=== PATIENT | female | born 1965 | race Caucasian/White ===

== ENCOUNTER 2017-02-13 11:52 | Emergency (ER) | payer MEDICAID, OTHER ==
[~2017-02-13] VITALS: Ht 167.6 cm; Wt 98.5 kg
[~2017-02-13 11:52] MED LIST: AMO500 PO; CARI350T PO; CIPR500T4 PO; CYCL-319 PO; IBUP-1542 PO; LISI10TA2 PO; NAPR-260 PO; NAPR-688 PO; NITR-58 PO; TRAZ50TA18 PO
[2017-02-13 11:57] VITALS: Ht 167.6 cm; Wt 98.5 kg
[2017-02-13] MEDS ORDERED: KETOROLAC 30 MG INJ IM STA (12:53)
[2017-02-13] MEDS ORDERED: predniSONE 20 MG TAB PO ONE (13:00)
[2017-02-13] MEDS ORDERED: TRAM50TA2 PO (13:57)
[2017-02-13] MEDS ORDERED: PRED20TA PO (13:57)
[2017-02-13] MEDS ORDERED: NAPR-260 PO (13:58)
[2017-02-13] MEDS ORDERED: CYCL-319 PO (13:58)
--- NOTE | 2017-02-13 14:04 | ERD ---
ER Documentation Chief Complaint Date/Time DATE: 02/13/17 TIME: 13:59 Chief Complaint back pain x 1 month HPI This 51-year-old female who presents to the emergency department today complaining of back pain. Patient states she has had problems with her back in the past however it came and went. States she has done physical therapy in the past. States has been worse the past month and then worse again the last couple of days. States that she has had x-rays on her back that show scoliosis. States she is not taking any medication for the pain because "I did not have any". Denies any fevers or chills, dysuria, loss of bowel or bladder control. ROS All systems reviewed and are negative except as per history of present illness. Medications Home Meds Active Scripts Naproxen* (Naprosyn*) 500 Mg Tablet, 500 MG PO BID Y for PAIN AND/OR INFLAMMATION, #30 TAB Prov:CRIS HOYOSC 02/13/17 Cyclobenzaprine Hcl* (Cyclobenzaprine Hcl*) 10 Mg Tablet, 10 MG PO QHS, #7 TAB Prov:CRIS HOYOSC 02/13/17 Prednisone* (Prednisone*) 20 Mg Tab, 40 MG PO DAILY for 4 Days, TAB Prov:CRIS HOYOSC 02/13/17 Tramadol HCl (Tramadol HCl) 50 Mg Tablet, 50 MG PO Q4 Y for PAIN, #20 TAB Prov:CRIS HOYOSC 02/13/17 Naproxen* (Naprosyn*) 500 Mg Tablet, 500 MG PO BID Y for PAIN AND/OR INFLAMMATION, #30 TAB Prov:PRISCILA GUY NP 01/17/16 Nitrofurantoin Monohyd Macrocr* (Macrobid*) 100 Mg Capsr, 100 MG PO BID for 7 Days, CAP Prov:PRISCILA GUY NP 01/17/16 Carisoprodol* (Soma*) 350 Mg Tablet, 350 MG PO TID Y for MUSCLE SPASMS, #15 TAB Prov:JATINDER MALDONADOC 09/08/15 Ibuprofen* (Motrin*) 600 Mg Tab, 600 MG PO Q6H Y for PAIN AND OR ELEVATED TEMP, #30 TAB Prov:JATINDER MALDONADO PA-C 09/08/15 Ciprofloxacin Hcl* (Ciprofloxacin Hcl*) 500 Mg Tablet, 500 MG PO BID for 7 Days , TAB Prov:JATINDER MALDONADO PA-C 09/08/15 Naproxen* (Naproxen*) 500 Mg Tablet, 500 MG PO BID, #20 TAB Prov:CANELO CRUZ DO 08/26/15 Amoxicillin* (Amoxicillin*) 500 Mg Cap, 500 MG PO Q8, #30 CAP Prov:CANELO CRUZ DO 08/26/15 Ibuprofen* (Motrin*) 600 Mg Tab, 600 MG PO Q8, #20 Prov:ALYSATimYISSELNATY 05/16/15 Cyclobenzaprine Hcl* (Cyclobenzaprine Hcl*) 10 Mg Tablet, 10 MG PO TID, #15 TAB Prov:NIMA SMITHBIR 05/16/15 Reported Medications Trazodone Hcl* (Trazodone Hcl*) 50 Mg Tablet, 50 MG PO HS Y for SLEEP, TAB 08/06/14 Lisinopril* (Lisinopril*) 10 Mg Tablet, 10 MG PO DAILY, TAB 08/06/14 Allergies Allergies: Coded Allergies: morphine (Verified Allergy, Severe, CARDIAC ARREST, 08/26/15) PMhx/Soc History of Surgery: Yes (GALL BLADDER IN ', CERVIX IN ') Anesthesia Reaction: No Hx Neurological Disorder: No Hx Respiratory Disorders: No Hx Cardiac Disorders: Yes (HTN) Hx Psychiatric Problems: Yes (DEPRESSSION ANXIETY) Hx Miscellaneous Medical Probl: Yes (high cholesterol) Hx Alcohol Use: Yes (SOCIALLY) Hx Substance Use: Yes Hx Tobacco Use: Yes Smoking Status: Current every day smoker Physical Exam Vitals Vital Signs Date Time Temp Pulse Resp B/P Pulse Ox O2 Delivery O2 Flow Rate FiO2 02/13/17 11:57 97.6 83 18 149/67 100 Physical Exam Const: NAD Head: Atraumatic Eyes: Normal Conjunctiva ENT: Normal External Ears, Nose and Mouth. Neck: Full range of motion..~ No meningismus. Resp: Clear to auscultation bilaterally Cardio: Regular rate and rhythm, no murmurs Skin: No petechiae or rashes Back: Lumbar spine midline tenderness and bilateral paraspinal tenderness. Bilateral positive straight leg raise. Distal neurovascularly intact. Pulses 2 +. Ext: No cyanosis, or edema Neur: Awake and alert Psych: Normal Mood and Affect Results 24 hrs Current Medications Medications (Trade) Dose Ordered Sig/Marsha Route PRN Reason Start Time Stop Time Status Last Admin Dose Admin Ketorolac Tromethamine (Toradol) 30 mg ONCE STAT IM 02/13/17 12:53 02/13/17 12:56 DC 02/13/17 13:10 Prednisone (Prednisone) 60 mg ONCE ONCE PO 02/13/17 13:00 02/13/17 13:01 DC 02/13/17 13:10 Procedures/MDM This a 51-year-old female presents to the emergency department today complaining of low back pain. Patient has had a history of sciatic pain in the past and has done physical therapy. Patient had been doing well for a period of time however it has been worse in the past month and worse in the past couple of days. I do not feel the patient requires new images at this time. She is afebrile and otherwise well-appearing. There has been no new trauma to she has no loss of bowel or bladder control. Low suspicion for cauda equina or abscess. Low suspicion for acute fracture or dislocation. She had been seen here multiple times in the past for low back pain and this appears to be acute on chronic. Patient had not been seen here since August 2015 for the specific complaint. She does not appear to be exhibiting drug- seeking behaviors. Patient had indicated that initially at 1. she was going to have some steroid injections in her back however this was never followed up on. Patient symptoms at this time is consistent with sciatica. Patient was given a Toradol injection and prednisone here in the emergency department. She will be given a short course of tramadol, Naprosyn, Flexeril and prednisone for home At this time the patient is stable for discharge and outpatient management. Patient should follow up with their PCP in the next 1-2 days. They may return to the emergency department sooner for any persistent or worsening of symptoms. Patient understood and agreed with the plan. Departure Diagnosis: Primary Impression: Back pain Back pain location: low back pain Chronicity: unspecified Back pain laterality: bilateral Sciatica presence: with sciatica Sciatica laterality: bilateral sciatica Qualified Code: M54.42 - Bilateral low back pain with bilateral sciatica, unspecified chronicity Condition: Fair Patient Instructions: Back Pain (Acute Or Chronic), Back Pain W/ Sciatica Referrals: your PCP [facility] [place] Hours: Sun-Sun 9:00 AM - 5:00 PM Additional Instructions: Call your primary care doctor TOMORROW for an appointment during the next 1-2 days.See the doctor sooner or return here if your condition worsens before your appointment time. Make an appointment with your primary care doctor for referral to physical therapy or credit administration specialist Take tramadol for severe pain otherwise take Naprosyn or Tylenol or Motrin Flexeril for muscle spasms only as needed. Take only at night and do not drive while taking this medication Take prednisone as prescribed CRIS HOYOS PA-C February 13, 2017 14:04
== END 2017-02-13 14:09 | disposition home or self-care (01) ==
LOC: FTE 11:52
DX: M54.42 Lumbago with sciatica, left side (principal); M54.41 Lumbago with sciatica, right side; F17.210 Nicotine dependence, cigarettes, uncomplicated; I10 Essential (primary) hypertension
CPT/HCPCS: 96372; J1885; J7512; Z7502

== ENCOUNTER 2017-02-23 11:36 | Emergency (ER) | payer MEDICAID, OTHER ==
[~2017-02-23] VITALS: Wt 99.0 kg
[~2017-02-23 11:36] MED LIST changes: +PRED20TA PO; +TRAM50TA2 PO
[2017-02-23] MEDS ORDERED: METHYLPREDNISOLONE 125 MG INJ IM STA (12:03)
[2017-02-23] MEDS ORDERED: IPRATROPIUM (NEB) 0.5 MG/2.5 ML AMP NEB STA (12:03)
[2017-02-23] MEDS ORDERED: ALBUTEROL 0.5% (NEB) 2.5 MG/0.5 ML AMP INH STA ×2 (12:03→13:37)
[2017-02-23] MEDS ORDERED: KETOROLAC 30 MG INJ IM STA (13:03)
--- NOTE | 2017-02-23 14:01 | RADRPT ---
PROCEDURE: XR Chest. CLINICAL INDICATION: Asthma exacerbation TECHNIQUE: Chest AP portable. COMPARISON: No comparison available. FINDINGS: The mediastinal structures are unremarkable. There is mild cardiomegaly. The pulmonary vascularity is normal. The lung corona are unremarkable. No consolidation is identified. The pleural spaces are unremarkable. The axial skeleton is unremarkable. IMPRESSION: Mild cardiomegaly No active disease RPTAT: HGDB .Jeff Shaw MD, MD Date Time Electronically viewed and signed by .Jeff Shaw MD, on 02/23/2017 14:01 .B/
[2017-02-23] MEDS ORDERED: PRED20TA PO (14:13)
[2017-02-23] MEDS ORDERED: AZIT250T94 PO (14:13)
[2017-02-23] MEDS ORDERED: ALBU8.5H3 INH (14:13)
--- NOTE | 2017-02-23 14:13 | ERD ---
ER Documentation Chief Complaint Date/Time DATE: 02/23/17 Chief Complaint Cough HPI The patient is a 51-year-old female who presents to the Emergency Department with complaint of mildly productive cough for the past month. The patient notes a history of tobacco use, though has quit. Over the past month she has been experiencing a persistent cough that alternates between being mildly productive of white-colored sputum and being dry. The cough is extremely bothersome, particularly at night when trying to sleep. It is associated with body aches, nasal congestion and mild rhinorrhea. Otherwise, no sore throat, ear pain, neck pain, neck stiffness or new rashes. No fevers, sweats, chills, nausea or vomiting. No chest pain, palpitations, shortness of breath. No lower extremity swelling, calf swelling/tenderness, dizziness, headache. No recent travel, OCP use, recent surgeries, history of cancer, prolonged periods of immobilization, hemoptysis, night sweats, or history of DVT/PE. No recent antibiotic use. No sick contacts. ROS All systems reviewed and are negative except as per history of present illness. Medications Home Meds Active Scripts Ibuprofen* (Motrin*) 600 Mg Tab, 600 MG PO Q6, #30 TAB Prov:JASPER RIZZO PA-C 02/23/17 Guaifenesin-Codeine Phosphate* (Guaifenesin* AC Cough Syrup) 473 Ml Liquid, 5 ML PO QHS Y for COUGH, #120 ML Prov:JASPER RIZZO PA-C 02/23/17 Azithromycin* (Zithromax*) 250 Mg Tablet, 250 MG PO .ZPACK DIRECTED, #6 TAB TAKE 500 MG (2 TABS) THE FIRST DAY THEN 250 MG (1 TAB) DAYS 2-5 Prov:JASPER RIZZO PA-C 02/23/17 Prednisone* (Prednisone*) 20 Mg Tab, 40 MG PO DAILY for 4 Days, TAB Prov:JASPER RIZZO PA-C 02/23/17 Albuterol Sulfate* (Proair HFA*) 8.5 Gm Hfa.aer.ad, 2 PUFF INH Q4, #1 INHALER Prov:JASPER RIZZO PA-C 02/23/17 Naproxen* (Naprosyn*) 500 Mg Tablet, 500 MG PO BID Y for PAIN AND/OR INFLAMMATION, #30 TAB Prov:CRIS HOYOS-C 02/13/17 Cyclobenzaprine Hcl* (Cyclobenzaprine Hcl*) 10 Mg Tablet, 10 MG PO QHS, #7 TAB Prov:CRIS HOYOS-C 02/13/17 Prednisone* (Prednisone*) 20 Mg Tab, 40 MG PO DAILY for 4 Days, TAB Prov:CRIS HOYOS-C 02/13/17 Tramadol HCl (Tramadol HCl) 50 Mg Tablet, 50 MG PO Q4 Y for PAIN, #20 TAB Prov:CRIS HOYOS-C 02/13/17 Naproxen* (Naprosyn*) 500 Mg Tablet, 500 MG PO BID Y for PAIN AND/OR INFLAMMATION, #30 TAB Prov:PRISCILA GUY BUSINESS ANALYTICS ANALYST 01/17/16 Nitrofurantoin Monohyd Macrocr* (Macrobid*) 100 Mg Capsr, 100 MG PO BID for 7 Days, CAP Prov:PRISCILA GUY BUSINESS ANALYTICS ANALYST 01/17/16 Carisoprodol* (Soma*) 350 Mg Tablet, 350 MG PO TID Y for MUSCLE SPASMS, #15 TAB Prov:JATINDER MALDONADO-C 09/08/15 Ibuprofen* (Motrin*) 600 Mg Tab, 600 MG PO Q6H Y for PAIN AND OR ELEVATED TEMP, #30 TAB Prov:JATINDER MALDONADO-C 09/08/15 Ciprofloxacin Hcl* (Ciprofloxacin Hcl*) 500 Mg Tablet, 500 MG PO BID for 7 Days , TAB Prov:JATINDER MALDONADO-C 09/08/15 Naproxen* (Naproxen*) 500 Mg Tablet, 500 MG PO BID, #20 TAB Prov:CANELO CRUZ DO 08/26/15 Amoxicillin* (Amoxicillin*) 500 Mg Cap, 500 MG PO Q8, #30 CAP Prov:CANELO CRUZ DO 08/26/15 Ibuprofen* (Motrin*) 600 Mg Tab, 600 MG PO Q8, #20 Prov:NATY SMITH 05/16/15 Cyclobenzaprine Hcl* (Cyclobenzaprine Hcl*) 10 Mg Tablet, 10 MG PO TID, #15 TAB Prov:NATY SMITH 05/16/15 Reported Medications Trazodone Hcl* (Trazodone Hcl*) 50 Mg Tablet, 50 MG PO HS Y for SLEEP, TAB 08/06/14 Lisinopril* (Lisinopril*) 10 Mg Tablet, 10 MG PO DAILY, TAB 08/06/14 Allergies Allergies: Coded Allergies: morphine (Verified Allergy, Severe, CARDIAC ARREST, 08/26/15) PMhx/Soc History of Surgery: Yes (GALL BLADDER IN , CERVIX IN ) Anesthesia Reaction: No Hx Neurological Disorder: No Hx Respiratory Disorders: No Hx Cardiac Disorders: Yes (HTN) Hx Psychiatric Problems: Yes (DEPRESSSION ANXIETY) Hx Miscellaneous Medical Probl: Yes (high cholesterol) Hx Alcohol Use: Yes (SOCIALLY) Hx Substance Use: Yes Hx Tobacco Use: Yes Smoking Status: Current every day smoker Physical Exam Vitals Vital Signs Date Time Temp Pulse Resp B/P Pulse Ox O2 Delivery O2 Flow Rate FiO2 02/23/17 15:20 98.4 82 18 149/67 99 Room Air 02/23/17 14:03 79 18 97 21 02/23/17 12:17 77 18 95 21 02/23/17 11:40 98.2 84 18 156/73 100 Physical Exam GENERAL: Well-developed, well-nourished, in no acute respiratory distress. HEENT: Head is normocephalic, atraumatic. No scleral pallor or icterus. Pupils equal, round and reactive to light. Extraocular movements intact. Conjunctiva pink. Nares are patent bilaterally. Bilaterally tympanic membranes are clear with no evidence of erythema, effusion or dulling of the light reflex. Moist mucous membranes. No pharyngeal erythema or exudates. Uvula is midline. NECK: Supple. No masses, no tenderness, no lymphadenopathy. Trachea midline. No nuchal rigidity. Full range of motion. RESPIRATORY: Prolonged expiratory phase with scattered expiratory wheezes bilaterally. Normal expiratory effort. No rales or rhonchi. No accessory muscle use. Speaking in full sentences. CARDIOVASCULAR: Regular rate and rhythm. S1 and S2 normal. No murmurs, rubs, or gallops. GASTROINTESTINAL: Abdomen is soft, nontender, and nondistended. EXTREMITIES: No clubbing, cyanosis, or edema. Normal skin perfusion. Full range of motion of both the upper and lower extremities bilaterally. Muscle tone is normal. No focal swelling or erythema. No calf swelling or calf tenderness. Distal pulses are palpable, 2+ bilaterally. Capillary refill is less than 2 seconds. NEUROLOGIC: The patient is alert, awake, and oriented x 3. No focal neurologic deficits. INTEGUMENT: Skin is clean, dry and intact. PSYCHIATRIC: Appropriate; Cooperative. Results 24 hrs Current Medications Medications (Trade) Dose Ordered Sig/Marsha Route PRN Reason Start Time Stop Time Status Last Admin Dose Admin Ipratropium [place] (Atrovent 0.02% (Neb)) 0.5 mg ONCE STAT NEB 02/23/17 12:03 02/23/17 12:05 DC 02/23/17 12:13 Albuterol (Proventil 0.5% (Neb)) 5 mg ONCE STAT INH 02/23/17 12:03 02/23/17 12:05 DC 02/23/17 12:13 Methylprednisolone Sodium Succinate (Solu-Medrol) 125 mg ONCE STAT IM 02/23/17 12:03 02/23/17 12:05 DC 02/23/17 12:09 Ketorolac Tromethamine (Toradol) 30 mg ONCE STAT IM 02/23/17 13:03 02/23/17 13:04 DC 02/23/17 13:28 Albuterol (Proventil 0.5% (Neb)) 5 mg ONCE STAT INH 02/23/17 13:37 02/23/17 13:38 DC 02/23/17 14:00 Procedures/MDM DIAGNOSTIC TESTS AND INTERPRETATION PROCEDURE: XR Chest. CLINICAL INDICATION: Asthma exacerbation TECHNIQUE: Chest AP portable. COMPARISON: No comparison available. FINDINGS: The mediastinal structures are unremarkable. There is mild cardiomegaly. The pulmonary vascularity is normal. The lung corona are unremarkable. No consolidation is identified. The pleural spaces are unremarkable. The axial skeleton is unremarkable. IMPRESSION: Mild cardiomegaly No active disease .Jeff Shaw MD, MD Date Time Electronically viewed and signed by .Jeff Shaw MD, on 02/23/2017 14:01 MEDICAL DECISION MAKING: This is a 51-year-old female presenting to the emergency department complaining of generalized body aches, nasal congestion and cough. On physical examination the patient had a prolonged expiratory phase , with scattered wheezes bilaterally. Otherwise, no rales or rhonchi were noted. She was afebrile, with no tachycardia, no tachypnea, no signs of respiratory distress. She had a normal O2 saturation on room air. She had no retractions, no increased work of breathing, no nasal flaring, no accessory muscle use. She exhibited no altered mental status, neurologic deficits or meningeal signs. Differential diagnosis includes, but is not limited to, pneumonia, pulmonary edema, sinusitis, foreign body, pertussis, upper respiratory infection, asthma, allergic rhinitis, GERD, bronchitis, allergic reaction, influenza, pharyngitis. No consolidation/infiltrates were noted on the diagnostic chest x-ray performed. After rest and administration of Toradol (for body aches), Solu-Medrol and breathing treatments (Albuterol/Atrovent) the patient reports no new complaints and reports feeling significantly better, with no shortness of breath or respiratory distress. Her wheezing resolved. \ Upon my review and interpretation of the patient's presentation and ER course, I believe the patient's symptoms are most consistent with acute bronchitis, possibly bacterial in etiology. No evidence of apnea, respiratory failure, dehydration, meningitis or other life-threatening etiology. The patient is well -appearing. She had no focal evidence of pneumonia. Patient's neck was supple , with no altered mental status, and therefore I doubt meningitis. Oropharynx was clear, with no erythema, exudates, petechiae, no associated cervical lymphadenopathy, and therefore I doubt streptoccocal pharyngitis. Tympanic membranes were clear bilaterally with no erythema or bulging noted, and therefore I doubt otitis media. At this time, the patient is in stable condition and not experiencing any current shortness of breath, wheezing or any signs of respiratory distress, and therefore can be discharged home with a prescription for Ibuprofen, ProAir HFA, Prednisone, Guaifenesin AC and Z-shaneka, and strict return precautions for signs of deteriorating or worsening condition. The patient is advised to follow up with her primary care provider within 2-3 days for reevaluation and further management or return to the ER sooner for any worsening symptoms. I shared my medical decision making and plan with the patient at length and in great detail, and she verbally understands and agrees with the plan for further observation and care as an outpatient. At the time of discharge all questions were answered. Departure Diagnosis: Primary Impression: Acute bronchitis Bronchitis organism: unspecified organism Qualified Code: J20.9 - Acute bronchitis, unspecified organism Condition: Stable Patient Instructions: Acute Bronchitis, Bronchitis With Wheezing (Adult), Bronchitis, Antiobiotic Treatment (Adult) Additional Instructions: Call your primary care doctor TOMORROW for an appointment during the next 2-3 days.See the doctor sooner or return here if your condition worsens before your appointment time. JASPER RIZZO PA-C February 23, 2017 14:13
[2017-02-23] MEDS ORDERED: GUAI473L22 PO (14:14)
[2017-02-23] MEDS ORDERED: IBUP-1542 PO (15:16)
[2017-02-23 15:20] VITALS: BP 149/67; PULSE 82; RESP 18; TEMP 98.4
== END 2017-02-23 15:21 | disposition home or self-care (01) ==
LOC: FTE 11:36
DX: J20.9 Acute bronchitis, unspecified (principal); F17.210 Nicotine dependence, cigarettes, uncomplicated; I10 Essential (primary) hypertension
CPT/HCPCS: 71010; 94644; 94645; 96372; J1885; J2930; Z7502; Z7610